=== PATIENT | male | born 1965 | race Caucasian/White ===

== ENCOUNTER 2020-02-10 23:37 | Emergency (ER) | payer OTHER, SELFPAY ==
--- NOTE | 2020-02-10 23:40 | ECG_ITS ---
Test Reason : RAPID HEART BEAT Blood Pressure : / mmHG Vent. Rate : 119 BPM Atrial Rate : 119 BPM P-R Int : 176 ms QRS Dur : 082 ms QT Int : 318 ms P-R-T Axes : 050 -47 038 degrees QTc Int : 447 ms Sinus tachycardia with Premature atrial complexes with Aberrant conduction Left axis deviation Abnormal ECG When compared with ECG of 10-FEB-2020 23:42, Supraventricular tachycardia is no longer Present Aberrant conduction is now Present ST no longer depressed in Inferior leads Heart rate has decreased Referred By: Generic ED Physician Electronically Signed By:ROSA CLAROS
[2020-02-10 23:53] VITALS: BP 144/97; PULSE 163; RESP 23; TEMP 36.6; O2SAT 97
[2020-02-11 00:02] VITALS: BP 144/97; PULSE 168; RESP 22; TEMP 36.6; O2SAT 97; BMI 29.9
--- NOTE | 2020-02-11 00:04 | ED_ITS ---
HPI - Chest Pain General Chief Complaint: Chest Pain Stated Complaint: Tachycardia Time Seen by Provider: 02/10/20 23:47 Source: patient History of Present Illness HPI narrative: this is a 54-year-old male who presents with 2 hours of racing heart not associated with dizziness, shortness of breath, diaphoresis, nausea, and he states that this is never happened to him before. He denies any recent alcohol use, has been staying well hydrated, and denies any recent medication changes. He denies any unexplained glucose results. Otherwise, he denies fevers, chills, GI symptoms, symptoms. MD complaint: chest discomfort Related Data Allergies Allergy/AdvReac Type Severity Reaction Status Date / Time No Known Allergies Allergy Unverified 01/25/20 15:25 Review of Systems Review of Systems: pertinent positives and negatives as stated in the HPI and 10 point review of systems is otherwise negative. [facility] Past Medical History Medical History Cholecystectomy planned Diabetes GERD (gastroesophageal reflux disease) High cholesterol HTN (hypertension) Social History Social History Alcohol intake: never Smoking Status: Never smoker Smoked in Last 30 Days: No Use of substances other than those prescribed or required for medical reasons: No Advance Directives: No Advance Directives Information Provided: No Physical Exam Vital Signs and I&O and Narrative: Vital Signs and I&O: Vital Signs Temp 98.1 F 02/11/20 00:54 Pulse 101 H 02/11/20 00:54 Resp 18 02/11/20 00:54 BP 130/75 02/11/20 00:54 Pulse Ox 97 02/11/20 00:54 Intake & Output 02/10/20 02/10/20 02/11/20 06:59 18:59 06:59 Weight 81.647 kg Body Mass Index 29.9 VITAL SIGNS: Reviewed. GENERAL: Well developed, well nourished, in no acute distress. HEAD: Normocephalic/atraumatic, EYES: PERRLA, EOMI intact without pain, no nystagmus/pallor/icterus noted EARS: Ext canals without abnormality, TMs non-bulging and non-erythematous NOSE: Nares patent bilateral OROPHARYNX: no oral lesions noted, posterior pharynx clear and non-erythematous without noted tonsillar enlargement/erythema/exudates NECK: Supple, no adenopathy LUNGS: Normal breath sounds. No adventitious sounds or accessory muscle use. SpO2<> CARDIOVASCULAR: NSR, heart rate -163 without noted murmurs, no JVD or lower extremity edema. ABDOMEN: Soft, non-tender, non-distended with bowel sounds. No rigidity. No guarding. No palpable masses or hernias noted MUSCULOSKELETAL: No tenderness, deformities, or effusions noted on gross inspection. EXTREMITIES: No cyanosis, clubbing or edema. SKIN: Inspection of the skin reveals no rashes, ulcerations, jaundice, pallor, or petechiae. NEUROLOGIC: Alert and oriented x 4. Strength and sensation to light touch were grossly intact Course Course Hospital Course: This is a 54-year-old male with history and clinical presentation consistent with initial episode of hemodynamically stable SVT which will be treated with adenosine and further lab work to assess for etiologies. 0018: 6 mg of adenosine was given IV push with gradual resolution of SVT. Evaluation and repeat EKG showed a rate of 103 and normal sinus rhythm. Review of all laboratory investigations is negative for evidence of infection, anemia, electrolyte abnormality and there is no evidence of DKA or HHS. Urinalysis likewise was negative for any acute abnormalities. All results and findings were discussed with patient at bedside and he was strongly encouraged to follow-up with his primary care provider on Wednesday and resume all home medications as prescribed. In addition, he was cautioned to avoid caffeinated products. MDM - Chest Pain Lab Data Result diagrams: 02/11/20 00:14 02/11/20 00:14 Labs: Lab Results 02/11/20 02/11/20 02/11/20 Range/Units 00:07 00:14 00:14 WBC 10.5 (4.8-10.8) X10*3/uL RBC 5.35 (4.60-5.80) X10*6/uL Hgb 15.8 (14.0-18.0) g/dl Hct 47.0 (42-52) % MCV 87.9 (80-98) fL MCH 29.5 (27.0-33.0) pg MCHC 33.6 (31.0-36.0) g/dl RDW 12.7 (11.0-16.0) % Plt Count 260 (160-400) X10*3/uL MPV 12.0 (9.4-12.4) fL Immature Gran % (Auto) 0.2 (0.0-0.4) % Neut % (Auto) 48.1 (45-73) % Lymph % (Auto) 40.6 H (20-40) % [place] % (Auto) 9.4 (2-11) % Eos % (Auto) 1.1 (0-4) % Baso % (Auto) 0.6 (0-2) % Neut # (Auto) 5.1 (2.0-8.3) X10*3/uL Lymph # (Auto) 4.3 (1.2-4.9) X10*3/uL [place] # (Auto) 1.0 (0.1-1.2) X10*3/uL Eos # (Auto) 0.1 (0.0-0.4) X10*3/uL Baso # (Auto) 0.1 (0.0-0.2) X10*3/uL Abs Immat Gran (auto) 0.02 (0.00-0.03) X10*3/uL Absolute Nucleated RBC 0.000 (0.0-0.012) X10*3/uL Nucleated RBC % (auto) 0.0 (0.0-0.2) /100WBC Sodium 143 (135-145) mmol/L Potassium 4.0 (3.3-5.1) mmol/l Chloride 101 (96-108) mmol/L Carbon Dioxide 33 H (22-29) mmol/L Anion Gap 13 (12-20) BUN 11 (9-16) mg/dL Creatinine 1.15 (0.5-1.4) mg/dL Estim Creat Clear Calc 72.2 Estimated GFR > 60 POC Glucose 256 H (60-115) mg/dL Random Glucose 264 H (60-115) mg/dL Calcium 10.5 H (8.4-10.2) mg/dL Total Bilirubin 0.8 (0.0-1.0) mg/dL AST 17 (5-37) U/L ALT 51 H (0-40) U/L Alkaline Phosphatase 163 H (39-117) U/L Troponin I High Sens (<3.5-35.0) ng/L Total Protein 7.8 (6.5-8.0) g/dL Albumin 4.8 (3.5-5.0) g/dL TSH 2.55 (0.32-4.0) mIU/mL Urine Color Urine Appearance Urine pH (5.0-8.0) Ur Specific [place] (1.005-1.025) Urine Protein (NEG-TRACE) MG/DL Urine Glucose (UA) (NEG) MG/DL Urine Ketones (NEG) MG/DL Urine Blood (NEG) Urine Nitrite (NEG) Ur Leukocyte Esterase (NEG) 02/11/20 02/11/20 Range/Units 00:14 00:20 WBC (4.8-10.8) X10*3/uL RBC (4.60-5.80) X10*6/uL Hgb (14.0-18.0) g/dl Hct (42-52) % MCV (80-98) fL MCH (27.0-33.0) pg MCHC (31.0-36.0) g/dl RDW (11.0-16.0) % Plt Count (160-400) X10*3/uL MPV (9.4-12.4) fL Immature Gran % (Auto) (0.0-0.4) % Neut % (Auto) (45-73) % Lymph % (Auto) (20-40) % [place] % (Auto) (2-11) % Eos % (Auto) (0-4) % Baso % (Auto) (0-2) % Neut # (Auto) (2.0-8.3) X10*3/uL Lymph # (Auto) (1.2-4.9) X10*3/uL [place] # (Auto) (0.1-1.2) X10*3/uL Eos # (Auto) (0.0-0.4) X10*3/uL Baso # (Auto) (0.0-0.2) X10*3/uL Abs Immat Gran (auto) (0.00-0.03) X10*3/uL Absolute Nucleated RBC (0.0-0.012) X10*3/uL Nucleated RBC % (auto) (0.0-0.2) /100WBC Sodium (135-145) mmol/L Potassium (3.3-5.1) mmol/l Chloride (96-108) mmol/L Carbon Dioxide (22-29) mmol/L Anion Gap (12-20) BUN (9-16) mg/dL Creatinine (0.5-1.4) mg/dL Estim Creat Clear Calc Estimated GFR POC Glucose (60-115) mg/dL Random Glucose (60-115) mg/dL Calcium (8.4-10.2) mg/dL Total Bilirubin (0.0-1.0) mg/dL AST (5-37) U/L ALT (0-40) U/L Alkaline Phosphatase (39-117) U/L Troponin I High Sens 3.7 (<3.5-35.0) ng/L Total Protein (6.5-8.0) g/dL Albumin (3.5-5.0) g/dL TSH (0.32-4.0) mIU/mL Urine Color COLORLESS Urine Appearance CLEAR Urine pH 6.0 (5.0-8.0) Ur Specific [place] <= 1.005 (1.005-1.025) Urine Protein NEG (NEG-TRACE) MG/DL Urine Glucose (UA) 250 H (NEG) MG/DL Urine Ketones NEG (NEG) MG/DL Urine Blood NEG (NEG) Urine Nitrite NEG (NEG) Ur Leukocyte Esterase NEG (NEG) ECG Data ECG #1: Attestation: I personally reviewed and interpreted this ECG as follows: Interpretation: SVT, heart rate-164, no evidence of ischemia ECG #2: Interpretation: NSR, heart rate-103, no evidence of ischemia Discharge Plan Discharge Clinical Impression: Paroxysmal supraventricular tachycardia Patient Disposition: Home, Self-Care Instructions: Supraventricular Tachycardia (ED) Additional Instructions: 1. resume all home medications as prescribed. 2. avoid caffeinated products. The patient and/or family acknowledge understanding of results (as applicable), diagnosis, treatment plan, need for follow up, and symptoms that should prompt a return to the emergency room. Referrals: Physician,Unknown [Primary Care Provider] - 2 days (For further discussion of your palpitations) Print Language: Argentine
[2020-02-11 00:08] VITALS: PULSE 168
[2020-02-11 00:18] LABS: Glucose, Whole Blood 256 mg/dL (60-115)
[2020-02-11 00:22] LABS: MANUAL DIFF FLAG NO
[2020-02-11 00:24] LABS: Basophils Absolute Auto 0.1 X10*3/uL (0.0-0.2); Basophils Percent Auto 0.6 % (0-2); Eosinophils Absolute Auto 0.1 X10*3/uL (0.0-0.4); Eosinophils Percent Auto 1.1 % (0-4); Hemoglobin 15.8 g/dl (14.0-18.0); Imm Gran Abs Auto 0.02 X10*3/uL (0.00-0.03); Imm Gran Pct Auto 0.2 % (0.0-0.4); Lymphocytes Absolute Auto 4.3 X10*3/uL (1.2-4.9); Lymphocytes Percent Auto 40.6 % (20-40); Mean Corpuscular HGB Conc 33.6 g/dl (31.0-36.0); Mean Corpuscular Hemoglobin 29.5 pg (27.0-33.0); Mean Corpuscular Volume 87.9 fL (80-98); Monocytes Percent Auto 9.4 % (2-11); Neutrophils Absolute Auto 5.1 X10*3/uL (2.0-8.3); Neutrophils Percent Auto 48.1 % (45-73); Platelet Count 260 X10*3/uL (160-400); Red Blood Count 5.35 X10*6/uL (4.60-5.80); Red Cell Distribution Width 12.7 % (11.0-16.0); White Blood Count 10.5 X10*3/uL (4.8-10.8)
[2020-02-11 00:49] LABS: Alanine Aminotransferase 51 U/L (0-40); Albumin Level 4.8 g/dL (3.5-5.0); Alkaline Phosphatase 163 U/L (39-117); Anion Gap 13 (12-20); Aspartate Amino Transferase 17 U/L (5-37); Bilirubin Total 0.8 mg/dL (0.0-1.0); Blood Urea Nitrogen 11 mg/dL (9-16); Calcium 10.5 mg/dL (8.4-10.2); Carbon Dioxide 33 mmol/L (22-29); Chloride 101 mmol/L (96-108); Creatinine Clr Calc Pharmacy 72.2; Estimated Glomerular Filt Rate > 60; Glucose Random 264 mg/dL (60-115); Sodium 143 mmol/L (135-145); Total Protein 7.8 g/dL (6.5-8.0)
[2020-02-11 00:51] LABS: Troponin-I High Sensitivity 3.7 ng/L (<3.5-35.0)
[2020-02-11 00:54] VITALS: BP 130/75; PULSE 101; RESP 18; TEMP 36.7; O2SAT 97
[2020-02-11 00:56] LABS: Glucose Urine UA 250 MG/DL (NEG); Leukocyte Esterase Urine NEG (NEG); Nitrite Urine NEG (NEG); Specific Gravity - Urine <= 1.005 (1.005-1.025); Urine Blood NEG (NEG); Urine Ketones NEG (NEG); Urine Protein NEG (NEG-TRACE)
[2020-02-11 00:57] LABS: Appearance Urine CLEAR; Color Urine COLORLESS; UACC Culture Trigger NO
[2020-02-11 01:09] LABS: TSH reflex Free T4 2.55 mIU/mL (0.32-4.0)
[2020-02-11 02:25] VITALS: BP 114/65; PULSE 93; RESP 16; O2SAT 98
--- NOTE | 2020-02-11 17:06 | ECG_ITS ---
Test Reason : RAPID HEART BEAT Blood Pressure : / mmHG Vent. Rate : 103 BPM Atrial Rate : 103 BPM P-R Int : 182 ms QRS Dur : 084 ms QT Int : 360 ms P-R-T Axes : 045 -49 023 degrees QTc Int : 471 ms Sinus tachycardia Left axis deviation Abnormal ECG When compared with ECG of 10-FEB-2020 23:57, Aberrant conduction is no longer Present Referred By: Ana Lilia Lentz Electronically Signed By:ROSA CLAROS
== END 2020-02-11 02:57 | disposition home or self-care (01) ==
PROVIDERS: Emergency Provider Student in an Organized Health Care Education/Training Program
DX: I47.1 Supraventricular tachycardia (principal); E11.9 Type 2 diabetes mellitus without complications; I10 Essential (primary) hypertension; E78.00 Pure hypercholesterolemia, unspecified; K21.9 Gastro-esophageal reflux disease without esophagitis
CPT/HCPCS: 36415; 80053; 81003; 82947; 84443; 84484; 85025; 93005; 93010; 96374; 99284